=== PATIENT | male | born 1985 | race Hispanic/Latino ===

== ENCOUNTER 2019-12-21 09:37 | Emergency (ER) | payer OTHER ==
--- NOTE | 2019-12-21 10:37 | ER ---
Nurse's Notes [facility] Name: Pedro Patel Jr Age: 34 yrs Sex: Male : 1985 Arrival Date: 12/21/2019 Time: 09:43 Bed 6 Private MD: Diagnosis: Acute upper respiratory infection, unspecified Presentation: 12/20 10:03 Chief complaint: Patient states: Fever, chills, body aches, sore throat, and loss of ph taste that began this morning, TMAX 102, pt afebrile at this time, denies N/V/D. Coronavirus screen: Surgical mask placed on patient. Patient moved to private room, placed in contact and droplet isolation with eye protection until further assessment. Patient denies a cough. Patient denies shortness of breath or difficulty breathing. Patient reports a measured and/or subjective temperature greater than 100.4F. Patient denies travel on a cruise ship or to a country the [facility] currently lists as an affected area. Patient denies contact with known and/or suspected case of COVID-19. Ebola Screen: No symptoms or risks identified at this time. Initial Sepsis Screen: Does the patient meet any 2 criteria? No. Patient's initial sepsis screen is negative. Does the patient have a suspected source of infection? No. Patient's initial sepsis screen is negative. Risk Assessment: Do you want to hurt yourself or someone else? Patient reports no desire to harm self or others. Onset of symptoms was December 21, 2019. 10:03 Method Of Arrival: Ambulatory ph 10:03 Acuity: ИРИНА 4 ph Historical: - Allergies: 10:06 No Known Allergies; ph - Home Meds: 10:06 None [Active]; ph - PMHx: 10:06 None; ph - PSHx: 10:06 Appendectomy; ph - Immunization history:: Adult Immunizations unknown. - Social history:: Smoking status: Patient denies any tobacco usage or history of. Patient/guardian denies using alcohol, street drugs, The patient lives with family. - Family history:: not pertinent. Screenin:06 Abuse screen: Denies threats or abuse. Denies injuries from another. Nutritional ph screening: No deficits noted. Tuberculosis screening: No symptoms or risk factors identified. Fall Risk None identified. Assessment: 10:07 General: Appears in no apparent distress. comfortable, well groomed, Behavior is calm, ph cooperative, appropriate for age, Reports chills for fever for 0-12 hours. Pain: Complains of pain in 'all over". Neuro: Level of Consciousness is awake, alert, obeys commands, Oriented to person, place, time, situation. Cardiovascular: Capillary refill < 3 seconds in bilateral fingers Patient's skin is warm and dry. Respiratory: Airway is patent Respiratory effort is even, unlabored, Respiratory pattern is regular, symmetrical, Denies cough, shortness of breath. GI: No signs and/or symptoms were reported involving the gastrointestinal system. EENT: Reports pain when swallowing. Derm: Skin is intact, is healthy with good turgor, Skin is pink, warm \\T\\ dry. Musculoskeletal: Circulation, motion, and sensation intact. Range of motion: intact in all extremities. 11:03 Reassessment: Patient appears in no apparent distress at this time. Patient and/or ph family updated on plan of care and expected duration. Pain level reassessed. Patient is alert, oriented x 3, equal unlabored respirations, skin warm/dry/pink. Pt d/c home, instructed to quarantine until COVID results received, work note provided. Vital Signs: 10:03 BP 142 / 87; Pulse 109; Resp 18; Temp 98.9(O); Pulse Ox 98% on R/A; Weight 88.9 kg; ph Height 5 ft. 8 in. (172.72 cm); 11:05 BP 138 / 84; Pulse 97; Resp 16; Temp 98.5; Pulse Ox 100% on R/A; ph 10:03 Body Mass Index 29.80 (88.90 kg, 172.72 cm) ph ED Course: 09:43 Patient arrived in ED. mr 09:57 Sunitha Cevallos MD is Attending Physician. ma2 10:03 Ava Gruber RN is Primary Nurse. ph 10:05 Triage completed. ph 10:06 Arm band placed on Patient placed in an exam room, on a stretcher, on pulse oximetry. ph 10:06 Patient has correct armband on for positive identification. Bed in low position. Call light in reach. Side rails up X 1. Pulse ox on. NIBP on. Door closed. Noise minimized. Warm blanket given. 11:04 No provider procedures requiring assistance completed. Patient did not have IV access ph during this emergency room visit. Administered Medications: 10:55 Drug: [place] 10 mg-325 mg 1 tabs Route: PO; ph 11:02 Follow up: Response: No adverse reaction; Medication administered at discharge. ph Outcome: 10:36 Discharge ordered by MD. rivera 11:05 Discharged to home ambulatory. ph 11:05 Condition: good 11:05 Discharge instructions given to patient, Instructed on discharge instructions, follow up and referral plans. medication usage, Demonstrated understanding of instructions, follow-up care, medications, Prescriptions given X 3. 11:05 Patient left the ED. ph Addendum: 12/26/2019 08:30 Addendum: COVID-19 Result: Negative result given to RN to notify pt. Notified pt of e b negative COVID 19 swab results. Pt advised that even with a negative test result they should remain in isolation until symptom free for 3 days without medication. Pt also advised to return to the ED for worsening symptoms. Signatures: Jess Fields Patricia, RN RN Sunitha Cevallos MD MD ma2 Kristal Obando
--- NOTE | 2019-12-21 10:37 | EDPHYS ---
Physician Documentation [facility] Name: Pedro Patel Jr Age: 34 yrs Sex: Male : 1985 Arrival Date: 12/21/2019 Time: 09:43 Bed 6 Private MD: ED Physician Sunitha Cevallos HPI: 12/20 10:35 This 34 yrs old Male presents to ER via Ambulatory with complaints of Fever. ma2 10:35 The patient reports fever, not measured (subjective). Onset: The symptoms/episode ma2 began/occurred gradually, 1 day(s) ago. Associated signs and symptoms: Pertinent negatives: abdominal pain, backache, chills, diarrhea. Severity of symptoms: At their worst the symptoms were mild in the emergency department the symptoms are unchanged. The patient has not experienced similar symptoms in the past. Historical: - Allergies: 10:06 No Known Allergies; ph - Home Meds: 10:06 None [Active]; ph - PMHx: 10:06 None; ph - PSHx: 10:06 Appendectomy; ph - Immunization history:: Adult Immunizations unknown. - Social history:: Smoking status: Patient denies any tobacco usage or history of. Patient/guardian denies using alcohol, street drugs, The patient lives with family. - Family history:: not pertinent. ROS: 10:35 Constitutional: Negative for fever, chills, and weight loss. ma2 10:35 All other systems are negative. Exam: 10:35 Constitutional: This is a well developed, well nourished patient who is awake, alert, ma2 and in no acute distress. Head/Face: Normocephalic, atraumatic. Eyes: Pupils equal round and reactive to light, extra-ocular motions intact. Lids and lashes normal. Conjunctiva and sclera are non-icteric and not injected. Cornea within normal limits. Periorbital areas with no swelling, redness, or edema. ENT: Nares patent. No nasal discharge, no septal abnormalities noted. Tympanic membranes are normal and external auditory canals are clear. Oropharynx with no redness, swelling, or masses, exudates, or evidence of obstruction, uvula midline. Mucous membranes moist. Neck: Trachea midline, no thyromegaly or masses palpated, and no cervical lymphadenopathy. Supple, full range of motion without nuchal rigidity, or vertebral point tenderness. No Meningismus. Chest/axilla: Normal chest wall appearance and motion. Nontender with no deformity. No lesions are appreciated. Cardiovascular: Regular rate and rhythm with a normal S1 and S2. No gallops, murmurs, or rubs. Normal PMI, no JVD. No pulse deficits. Respiratory: Lungs have equal breath sounds bilaterally, clear to auscultation and percussion. No rales, rhonchi or wheezes noted. No increased work of breathing, no retractions or nasal flaring. Abdomen/GI: Soft, non-tender, with normal bowel sounds. No distension or tympany. No guarding or rebound. No evidence of tenderness throughout. Back: No spinal tenderness. No costovertebral tenderness. Full range of motion. Skin: Warm, dry with normal turgor. Normal color with no rashes, no lesions, and no evidence of cellulitis. MS/ Extremity: Pulses equal, no cyanosis. Neurovascular intact. Full, normal range of motion. Neuro: Awake and alert, GCS 15, oriented to person, place, time, and situation. Cranial nerves II-XII grossly intact. Motor strength 5/5 in all extremities. Sensory grossly intact. Cerebellar exam normal. Normal gait. 10:37 ENT: red oropharynx otherwise, Nares patent. No nasal discharge, no septal ma2 abnormalities noted. Tympanic membranes are normal and external auditory canals are clear. Oropharynx with no redness, swelling, or masses, exudates, or evidence of obstruction, uvula midline. Mucous membranes moist. Vital Signs: 10:03 BP 142 / 87; Pulse 109; Resp 18; Temp 98.9(O); Pulse Ox 98% on R/A; Weight 88.9 kg; ph Height 5 ft. 8 in. (172.72 cm); 11:05 BP 138 / 84; Pulse 97; Resp 16; Temp 98.5; Pulse Ox 100% on R/A; ph 10:03 Body Mass Index 29.80 (88.90 kg, 172.72 cm) ph MDM: 09:58 Patient medically screened. ma2 10:35 Differential diagnosis: bacterial infection, URI, bronchitis. Data reviewed: vital ma2 signs, nurses notes. Counseling: I had a detailed discussion with the patient and/or guardian regarding: the historical points, exam findings, and any diagnostic results supporting the discharge/admit diagnosis, the presence of at least one elevated blood pressure reading (>120/80) during this emergency department visit, the need for outpatient follow up. Response to treatment: the patient's symptoms have markedly improved after treatment. 10:37 ED course: patient declined IM medications. az2 12/20 10:35 Order name: COVID-19 az2 12/20 10:35 Order name: Labs collected and sent; Complete Time: 11:02 az2 12/20 10:35 Order name: [facility] [id number]/ ; Complete Time: 11:02 az2 Administered Medications: 10:55 Drug: [place] 10 mg-325 mg 1 tabs Route: PO; ph 11:02 Follow up: Response: No adverse reaction; Medication administered at discharge. ph Disposition: 12/21/19 10:36 Discharged to Home. Impression: Acute upper respiratory infection, unspecified. - Condition is Stable. - Discharge Instructions: COVID-19, Upper Respiratory Infection, Adult. - Prescriptions for Diclofenac Sodium 75 mg Oral Tablet Sustained Release - take 1 tablet by ORAL route 2 times per day; 30 tablet. Zithromax Z- Abhinav 250 mg Oral Tablet - take 1 tablet by ORAL route as directed for 5 days Day 1 - take two (2) tablets one time. Day 2, 3, 4 , 5 take one (1) tablet once daily.; 6 tablet. Medrol (Abhinav) 4 mg Oral Tablets, Dose Pack - take 1 tablet by ORAL route as directed - follow package instructions; 1 packet. - Work release form, Medication Reconciliation Form, Thank You Letter, Antibiotic Education, Prescription Opioid Use form. - Follow up: Private Physician; When: Tomorrow; Reason: If symptoms return. Signatures: Dispatcher [employer] Ava Perez RN RN ph Sunitha Cevallos MD MD ma2 Corrections: (The following items were deleted from the chart) 11:05 10:36 12/21/2019 10:36 Discharged to Home. Impression: Acute upper respiratory ph infection, unspecified. Condition is Stable. Forms are Medication Reconciliation Form, Thank You Letter, Antibiotic Education, Prescription Opioid Use. Follow up: Private Physician; When: Tomorrow; Reason: If symptoms return. ma2
[2019-12-21] MEDS ORDERED: HYDROCODONE/APAP 10/325 TAB ONE (10:57)
[2019-12-21 11:48] VITALS: BP 138/84; TEMP 98.5; O2SAT 100
== END 2019-12-21 11:05 | disposition home or self-care (01) ==
LOC: ER 09:37
DX: J06.9 Acute upper respiratory infection, unspecified (principal); Z20.828 Contact with and (suspected) exposure to other viral communicable diseases
CPT/HCPCS: 99283; U0001